=== PATIENT | male | born 1990 | race Caucasian/White ===

== ENCOUNTER 2017-08-29 01:07 | Emergency (ER) | payer OTHER ==
[~2017-08-29] VITALS: Ht 175.3 cm; Wt 90.9 kg
[2017-08-29] MEDS ORDERED: METOCLOPRAMIDE HCL 5 MG/ML 2 ML VIAL IM ONE (02:45)
[2017-08-29] MEDS ORDERED: KETOROLAC TROMETHAMINE 30 MG/ML VIAL IM ONE (02:45)
[2017-08-29] MEDS ORDERED: DiphenhydrAMINE HCL 50 MG/ML VIAL IM ONE (02:45)
[2017-08-29 05:40] VITALS: BP 123/65
== END 2017-08-29 05:42 | disposition home or self-care (01) ==
LOC: EMS 01:08
DX: G44.209 Tension-type headache, unspecified, not intractable (principal)
CPT/HCPCS: 70450; 96372; 99284; J1200; J1885; J2765

== ENCOUNTER 2021-06-24 14:14 | Emergency (ER) | payer MEDICAID, OTHER ==
[~2021-06-24] VITALS: Ht 175.3 cm; Wt 86.4 kg
[2021-06-24 14:17] VITALS: BP 128/63
[2021-06-24 15:06] LABS: COVID AG,FIA SOURCE NASOPHARYNGEAL
== END 2021-06-24 15:08 | disposition home or self-care (01) ==
LOC: EMS 14:17
DX: Z20.822 Contact with and (suspected) exposure to COVID-19 (principal)
CPT/HCPCS: 99283

== ENCOUNTER 2022-02-26 14:23 | Emergency (ER) | payer MEDICAID ==
[~2022-02-26] VITALS: Ht 177.8 cm; Wt 100.0 kg
[2022-02-26] MEDS ORDERED: IBUPROFEN 400 MG TABLET PO ONE (15:15)
[2022-02-26] MEDS ORDERED: ACETAMINOPHEN 325 MG TABLET PO ONE (15:15)
[2022-02-26 17:19] VITALS: BP 135/90
== END 2022-02-26 18:30 | disposition home or self-care (01) ==
LOC: EMS 14:23
DX: S20.211A Contusion of right front wall of thorax, initial encounter (principal); F10.20 Alcohol dependence, uncomplicated; R91.1 Solitary pulmonary nodule; W19.XXXA Unspecified fall, initial encounter; Y93.89 Activity, other specified; Y92.89 Other specified places as the place of occurrence of the external cause; Y99.8 Other external cause status
CPT/HCPCS: 71250; 72192; 74150; 74176; 99284

== ENCOUNTER 2022-09-13 11:44 | Emergency (ER) | payer MEDICAID ==
[~2022-09-13] VITALS: Ht 177.8 cm; Wt 100.0 kg
[2022-09-13 13:31] VITALS: BP 142/92
== END 2022-09-13 14:36 | disposition home or self-care (01) ==
LOC: EMS 11:46
DX: Z02.79 Encounter for issue of other medical certificate (principal); V98.8XXA Other specified transport accidents, initial encounter; Y93.89 Activity, other specified; Y92.89 Other specified places as the place of occurrence of the external cause; Y99.8 Other external cause status
CPT/HCPCS: 72040; 99283